=== PATIENT | female | born 1965 | race Caucasian/White ===

== ENCOUNTER → 2021-03-25 | Outpatient (CLI) | payer BC, SELFPAY ==
[2021-03-24 11:30] VITALS: BMI 29.1
--- NOTE | 2021-03-24 14:20 | ASPS_PTH ---
PATIENT: MANOLO PAREDES LOC: [facility] U#:[id number] AGE/SX: 55/F ROOM: RE03/25/[address]: Dr. Jonatan Kelly MD : 1965 BED: DIS: 03/25/2021 SPEC #: [id number] RECD: 03/25/21 09:56 STATUS: SHELL RECarisa #: [id number] CAMI: 03/24/21 14:[address]: Jonatan Kelly DEPT: CYTOLOGY RECD BY: Damaris Almeida ENTERED: 03/25/21 12:21 SP TYPE: ASPIRATION OTHR DR: Dr. Sonny Brown, DO Tissues: Thyroid gland, NOS Procedures: Special Stain Group II Cytology Other HEADER OPERATION: Right thyroid fine needle aspiration PRE-OP DIAGNOSIS: Right thyroid nodule TISSUE SUBMITTED: Right thyroid slides x8 DIAGNOSIS CYTOLOGY Right thyroid nodule, FNA (smears): Non-diagnostic specimen due to lack of adequate number of follicular cells. See comment. SJ:jamee 03/26/2021 COMMENT Rare benign follicular cells are noted. Significant amount of colloid is not seen. Correlation with clinical, radiologic findings and appropriate follow up are necessary. Case has been reviewed in consultation with Dr. Hill who concurs with the above diagnosis. IDC:AM CYTOLOGY STUDY Slides are reviewed. CYTOLOGY GROSS Received are eight smears labeled with the patient's name and designated per the requisition as right thyroid. Submitted for staining. / jamee 03/25/2021 TC:5 CPT: 71115
== END | disposition home or self-care (01) ==
PROVIDERS: PCP Student in an Organized Health Care Education/Training Program; Referring Provider Surgery; Visit Provider Surgery
DX: E04.1 Nontoxic single thyroid nodule (principal)
CPT/HCPCS: 88161; 88313